=== PATIENT | female | born 2000 | race Caucasian/White ===

== ENCOUNTER 2021-12-12 08:00 | Outpatient (CLI) | payer OTHER ==
--- NOTE | 2021-12-12 14:26 | XRAY Report ---
PROCEDURE: Knee 2 View RT INDICATIONS: R KNEE PX TECHNIQUE: 2 views of the right knee were acquired. COMPARISON: None. FINDINGS: Bones: No acute fractures or dislocations. No suspicious bony lesions. Soft tissues: No joint effusion. No suspicious soft tissue calcifications. IMPRESSION: No acute osseous abnormality. If symptoms persist or there is continued clinical concern , further evaluation with MRI or CT may be helpful. Reviewed by: Anthony Dennis MD on 12/12/2021 2:24 PM PST Approved by: Anthony Dennis MD on 12/12/2021 2:24 PM PST Station ID: [id number]
== END 2021-12-12 23:59 ==
LOC: DI.N 08:00
PROVIDERS: ATTEND Family Medicine
DX: M25.561 Pain in right knee (principal)

== ENCOUNTER 2022-10-04 00:46 | Outpatient (CLI) | payer OTHER | END 2022-10-04 00:47 | disposition short-term general hospital (02) | LOC: EMS 00:46 | DX: O90.81 Anemia of the puerperium (principal); R42 Dizziness and giddiness; R11.0 Nausea; K62.5 Hemorrhage of anus and rectum | CPT/HCPCS: A0425; A0427 ==